=== PATIENT | female | born 2000 | race Caucasian/White ===

== ENCOUNTER 2019-06-10 19:26 | Observation (INO) | payer SELFPAY ==
[2019-06-10 20:28] LABS: #Basophils 0.1 thou/uL (0.0-0.2); #Eosinphils 0.3 thou/uL (0.0-0.7); #Lymphocytes 1.8 thou/uL (1.20-3.40); #Monocytes 0.4 thou/uL (0.11-0.59); #Neutrophils 3.9 thou/uL (1.40-6.50); %Basophils 1.1 % (0.0-1.0); %Eosinophils 4.2 % (0.0-10.0); %Lymphocytes 27.6 % (28.0-48.0); %Monocytes 6.3 % (0.0-4.0); %Neutrophils 60.8 % (31.0-61.0); Hemoglobin 13.8 g/dL (12.0-16.0); Mean Corpuscular HGB CONC 35.1 g/dL (32.0-36.0); Mean Corpuscular Hemoglobin 30.5 pg (25.0-35.0); Mean Corpuscular Volume 86.8 fL (78.0-98.0); Mean Platelet Volume 7.3 fL (7.4-10.4); Platelet Count 343 thou/uL (130-400); RBC Distribution Width 12.1 % (11.5-14.5); Red Blood Cell (RBC) Count 4.53 mill/uL (4.00-5.20); White Blood Cell (WBC) Count 6.4 thou/uL (4.8-10.8)
[2019-06-10 20:38] LABS: BHCG - Serum Negative (NEGATIVE); Pregs Control Background? CLEAR/WHITE (CLR/WHITE); Pregs Control Bar Appear? YES (CONTROL BAR)
[2019-06-10] MEDS ORDERED: Ketorolac Tromethamine 30 MG/ML VIAL ONE (20:50)
[2019-06-10 20:52] LABS: ALT (SGPT) 10 U/L (8-55); AST (SGOT) 13 U/L (5-30); Albumin 4.8 g/dL (3.5-5.0); Alkaline Phosphatase 94 U/L (40-100); Anion Gap 16 mmol/L (10-20); BUN (Urea Nitrogen) 8 mg/dL (8.4-21.0); Bilirubin, Total 0.5 mg/dL (0.2-1.2); Calc. Creatinine Clearance 0 mL/min (70-130); Calcium 9.8 mg/dL (7.8-10.44); Carbon Dioxide 23 mmol/L (22-29); Chloride 105 mmol/L (98-107); Estimated GFR-MDRD Greater than 90; Globulin 2.8 g/dL (2.4-3.5); Glucose 95 mg/dL (70-105); Lipase 16 U/L (8-78); Potassium 3.9 mmol/L (3.5-5.1); Protein, Total 7.6 g/dL (6.0-8.3); Sodium 140 mmol/L (136-145)
[2019-06-10] MEDS ORDERED: Ondansetron PF 4 MG/2 ML Vial ONE ×2 (20:55→22:15)
--- NOTE | 2019-06-10 21:23 | CT ---
CT OF THE ABDOMEN AND PELVIS WITHOUT IV CONTRAST INDICATION: Left lower quadrant abdominal pain and back pain COMPARISON: None FINDINGS: The lack of IV contrast limits evaluation of the solid organs of the abdomen and pelvis. ABDOMEN: Lung bases: Clear Liver: No focal lesion. Gallbladder: Normal appearing. Pancreas: Normal. Adrenal glands: There is a 1.1 cm right adrenal nodule that cannot be further characterized. Left adr enal gland is normal-appearing. Spleen: 12.4 cm. Kidneys and ureters: There is a mild to moderate left hydronephrosis. There is a 5 mm stone at the le ft UPJ. There is a 1.2 cm cyst involving the superior pole of the left kidney. No right-sided hydronephrosis is demonstrated. No additional renal calculus is noted. Vasculature: Normal. Lymph nodes:No lymphadenopathy. Free fluid in abdomen:No free fluid is evident. PELVIS: Small and large bowel: Normal Appendix:Normal Bladder: Normal. Rectal and perirectal soft tissues:Normal. Reproductive structures: Normal. Free fluid in pelvis: No free fluid. Small phleboliths within the lower left hemipelvis. Lymphadenopathy pelvis: No lymphadenopathy is evident. Osseous structures: No acute osseous abnormality. No destructive osteolytic or osteoblastic lesion i s identified. Soft tissues:Normal. IMPRESSION: 1. 5 mm calculus at the left UPJ causing [id number] left hydronephrosis. 2. Left renal cyst. 3. Right adrenal nodule incompletely characterized. Follow-up CT of the abdomen utilizing adrenal mas s protocol may be helpful for improved characterization.
[2019-06-10 21:38] LABS: Bacteria/HPF 4+ HPF (None Seen); Bilirubin Negative (Negative); Blood, Urine Trace (Negative); Clarity Turbid (Clear); Glucose, Urine (Dipstick) Normal (Negative); Leukocyte 500 Leu/uL (Negative); Mucous/LPF 1+ LPF (<2+); Nitrite 2+ (Negative); Protein, Urine (Dipstick) 50 mg/dL (Neg-Trace); Squamous Epithelial 0-3 HPF (0-3); WBC/HPF Greater than 50 HPF (0-3)
[2019-06-10] MEDS ORDERED: cefTRIAXone\\ROCEPHIN 2 GM VIAL ONE (22:15)
[2019-06-10] MEDS ORDERED: Morphine 4 MG/ML VIAL ONE (22:15)
[2019-06-10] MEDS ORDERED: diphenhydrAMINE 50 MG/ML VIAL IVP PRN (23:17)
[2019-06-10 23:20] VITALS: BMI 23.0
[2019-06-10] MEDS: D5 0.9% NS w/ 20 mEq KCl 1,000 ML IV SCH (23:47)
[2019-06-10] MEDS: Ketorolac Tromethamine 30 MG/ML VIAL IVP SCH (23:47)
[2019-06-11] MEDS: Ondansetron PF 4 MG/2 ML Vial IVP PRN ×3 (00:07→08:12)
[2019-06-11] MEDS: Morphine 4 MG/ML VIAL SLOW IVP PRN ×2 (01:29→04:29)
[2019-06-11] MEDS: HYDROcodone/Acetaminophen 5/325 mg Tablet PO PRN ×2 (04:35→21:37)
[2019-06-11] MEDS: Ketorolac Tromethamine 30 MG/ML VIAL IVP SCH ×3 (05:00→18:02)
[2019-06-11 05:19] LABS: #Lymphocytes 0.5 thou/uL (1.20-3.40); #Monocytes 0.1 thou/uL (0.11-0.59); #Neutrophils 7.4 thou/uL (1.40-6.50); %Eosinophils 0.4 % (0.0-10.0); %Lymphocytes 5.7 % (28.0-48.0); %Monocytes 1.7 % (0.0-4.0); %Neutrophils 92.3 % (31.0-61.0); Hemoglobin 11.6 g/dL (12.0-16.0); Mean Corpuscular HGB CONC 34.7 g/dL (32.0-36.0); Mean Corpuscular Hemoglobin 30.1 pg (25.0-35.0); Mean Corpuscular Volume 86.6 fL (78.0-98.0); Mean Platelet Volume 7.2 fL (7.4-10.4); Platelet Count 214 thou/uL (130-400); RBC Distribution Width 12.1 % (11.5-14.5); Red Blood Cell (RBC) Count 3.85 mill/uL (4.00-5.20)
[2019-06-11 05:36] LABS: Anion Gap 11 mmol/L (10-20); BUN (Urea Nitrogen) 8 mg/dL (8.4-21.0); Calc. Creatinine Clearance 91 mL/min (70-130); Calcium 8.4 mg/dL (7.8-10.44); Carbon Dioxide 21 mmol/L (22-29); Chloride 109 mmol/L (98-107); Estimated GFR-MDRD 84; Glucose 121 mg/dL (70-105); Potassium 3.6 mmol/L (3.5-5.1); Sodium 137 mmol/L (136-145)
[2019-06-11] MEDS: cefTRIAXone\\ROCEPHIN 1 GM in Sodium Chloride 0.9% 100 ML IVPB SCH (08:07)
[2019-06-11] MEDS: D5 0.9% NS w/ 20 mEq KCl 1,000 ML IV SCH ×3 (08:07→20:08)
[2019-06-11] MEDS ORDERED: Promethazine HCl 25 MG/ML VIAL IM/IV PRN (08:53)
[2019-06-11] MEDS: Docusate 100 MG CAP PO SCH ×2 (09:29→20:03)
[2019-06-11] MEDS: Tamsulosin HCl 0.4 MG CAP PO SCH (09:29)
--- NOTE | 2019-06-11 09:33 | HP ---
CHIEF COMPLAINT: Left back pain. HISTORY OF PRESENT ILLNESS: This is a 18-year-old female, who presents to the emergency room with 2 days of left flank pain colicky in nature, up to 01/11. In the emergency room, a CT scan was obtained showing a 5-mm proximal obstructing ureteral stone with hydronephrosis. Urinalysis suggested infection showing leukocytes and nitrites , so the patient was given Rocephin and admission was requested. She was seen this morning on rounds and noted to be in significant distress and telling me that her nausea is not controlled by the medications. She tells me she is only having mild pain at this time. She denies fevers, dysuria, or hematuria. No prior history of stones. PAST SURGICAL HISTORY: Includes tonsillectomy and also x1. PAST MEDICAL HISTORY: None. PSYCHIATRIC HISTORY: Depression. SOCIAL HISTORY: Current smoker, using half pack per day. No substance abuse. FAMILY HISTORY: Positive for kidney stones. CURRENT HOME MEDICATIONS: None. ALLERGIES: NO KNOWN ALLERGIES. REVIEW OF SYSTEMS: Twelve-point review of systems was performed, negative except as mentioned in my HPI. PHYSICAL EXAMINATION: VITAL SIGNS: T-max 100.8 overnight. The patient has become tachycardic since 4 o'clock this morning, mild hypotension from 8 o'clock this morning. GENERAL: The patient is in moderate distress, barely able to maintain conversation. CHEST: Unlabored breathing, symmetric chest expansion. HEART: Regular rate and rhythm. ABDOMEN: Soft, nontender, and nondistended. No obvious CVA tenderness. No suprapubic tenderness. SKIN: Warm and dry. Alert and oriented x3. PSYCHIATRIC: Normal mood and affect. EXTREMITIES: Without clubbing, cyanosis, or edema. LABORATORY DATA: White count 9 this morning, up slightly from yesterday. Creatinine 0.87. IMAGING DATA: Reviewed showing obstructing left ureteral stone. ASSESSMENT AND PLAN: Obstructing ureteral stone, hydronephrosis, urinary tract infection versus early pyelonephritis. The patient and I discussed her options this morning and I advised that we proceed with left ureteral stent placement. She expressed understanding of the situation. I reviewed the procedure in detail including the risks and expected postoperative course. She does understand the risks as well as the fact that she will not have the stone treated at this setting and will require surgical intervention for the stone typically around 2 weeks. All of her questions were answered. The operating rooms were notified and we should be able to proceed later this morning for stent placement. Job ID: [id number] MTDD
[2019-06-11] MEDS ORDERED: Morphine 4 MG/ML VIAL ONE (09:50)
[2019-06-11] MEDS ORDERED: Midazolam HCl 2 mg/2 ml Vial ONE (10:29)
[2019-06-11] MEDS ORDERED: Fentanyl 100 MCG/2 ML VIAL ONE (10:29)
[2019-06-11] MEDS ORDERED: Iothalamate Meglumine 60% 50 ML VIAL FS ONE (10:44)
--- NOTE | 2019-06-11 11:25 | RAD ---
XR IVP Retrograde History: Stent placement Comparison: CT examination prior day Findings: Single spot image was obtained. Moderate left hydronephrosis. Impression: Fluoroscopy for procedural purposes.
[2019-06-11] MEDS ORDERED: Lidocaine 1% PF 5 ML VIAL ONE (11:42)
[2019-06-11] MEDS ORDERED: Ondansetron PF 4 MG/2 ML Vial ONE (11:42)
[2019-06-11] MEDS ORDERED: Dexamethasone 20 MG/5 ML VIAL ONE (11:42)
[2019-06-11] MEDS ORDERED: PROPOFOL 200 MG/20 ML VIAL ONE (11:42)
[2019-06-11] MEDS ORDERED: Promethazine HCl 25 MG/ML VIAL IM PRN (11:43)
[2019-06-11] MEDS ORDERED: Ondansetron HCl/PF 4 MG/2 ML Vial IVP PRN (11:43)
[2019-06-11] MEDS ORDERED: Promethazine HCl 25 MG/ML VIAL SLOW IVP PRN (11:43)
[2019-06-11] MEDS ORDERED: PACU-Morphine 4MG/ML VIAL SLOW IVP PRN (11:43)
[2019-06-11] MEDS ORDERED: Promethazine HCl 25 MG/ML VIAL ONE (11:56)
--- NOTE | 2019-06-11 12:26 | OP ---
DATE OF PROCEDURE: 06/11/2019 PREOPERATIVE DIAGNOSIS: Obstructing left ureteral stone. POSTOPERATIVE DIAGNOSIS: Obstructing left ureteral stone. PROCEDURES PERFORMED: Cystoscopy with left retrograde pyelogram, right retrograde pyelogram, left ureteral stent placement with 6 x 24 double-J ureteral stent. ANESTHESIA: General. COMPLICATIONS: None. SPECIMEN: None. BLOOD LOSS: None. DESCRIPTION OF PROCEDURE: After informed consent, the patient was taken to the operating room, transferred to the table on her own power. Anesthesia was established. Time-out was performed, showing the correct patient site and procedure. Preoperative antibiotics had been administered on the floor. She was prepped and draped in the supine position. The rigid cystoscope was carefully inserted through the urethra into the bladder. The bladder was systematically examined, noting no mucosal abnormalities. The left ureteral orifice was cannulated with a Pollack catheter and a gentle retrograde pyelogram performed, showing no dilation or filling defects of the ureter up to the level of the UPJ, where it appears there maybe a filling defect and moderate hydronephrosis beyond. I then used the same [place] catheter and performed a right retrograde pyelogram, showing no filling defects or hydronephrosis on the right side. A wire was then passed into the left ureter and guided into the renal pelvis under fluoroscopic guidance. A 6 x 24 double-J ureteral stent was then positioned over the wire with a curl in the upper pole of the kidney and curl in the bladder. The bladder was then drained. There was no purulent drainage from the ureter. She was then awoken from anesthesia and transferred back to her hospital bed and taken to PACU in stable condition, where she will return to the floor upon recovery. Job ID: [id number]
[2019-06-12] MEDS: Ketorolac Tromethamine 30 MG/ML VIAL IVP SCH ×2 (01:13→04:43)
[2019-06-12] MEDS: D5 0.9% NS w/ 20 mEq KCl 1,000 ML IV SCH (04:43)
[2019-06-12 05:06] LABS: #Lymphocytes 1.3 thou/uL (1.20-3.40); #Monocytes 0.9 thou/uL (0.11-0.59); #Neutrophils 9.7 thou/uL (1.40-6.50); %Eosinophils 0.2 % (0.0-10.0); %Lymphocytes 11.2 % (28.0-48.0); %Monocytes 7.7 % (0.0-4.0); %Neutrophils 80.9 % (31.0-61.0); Hemoglobin 10.4 g/dL (12.0-16.0); Mean Corpuscular HGB CONC 33.1 g/dL (32.0-36.0); Mean Corpuscular Hemoglobin 29.7 pg (25.0-35.0); Mean Corpuscular Volume 89.7 fL (78.0-98.0); Mean Platelet Volume 7.7 fL (7.4-10.4); Platelet Count 192 thou/uL (130-400); RBC Distribution Width 12.5 % (11.5-14.5); Red Blood Cell (RBC) Count 3.49 mill/uL (4.00-5.20); White Blood Cell (WBC) Count 11.9 thou/uL (4.8-10.8)
[2019-06-12 05:27] LABS: Anion Gap 11 mmol/L (10-20); BUN (Urea Nitrogen) 11 mg/dL (8.4-21.0); Calc. Creatinine Clearance 122 mL/min (70-130); Calcium 8.1 mg/dL (7.8-10.44); Carbon Dioxide 21 mmol/L (22-29); Chloride 110 mmol/L (98-107); Estimated GFR-MDRD Greater than 90; Glucose 120 mg/dL (70-105); Potassium 4.1 mmol/L (3.5-5.1); Sodium 138 mmol/L (136-145)
[2019-06-12] MEDS: HYDROcodone/Acetaminophen 5/325 mg Tablet PO PRN (06:12)
[2019-06-12] MEDS: Tamsulosin HCl 0.4 MG CAP PO SCH (09:00)
[2019-06-12] MEDS: Docusate 100 MG CAP PO SCH (09:00)
[2019-06-12] MEDS: cefTRIAXone\\ROCEPHIN 1 GM in Sodium Chloride 0.9% 100 ML IVPB SCH (09:06)
[2019-06-12 12:41] VITALS: BP 107/71; TEMP 98.1
== END 2019-06-12 14:34 | disposition home or self-care (01) ==
LOC: ERS 19:26 → SURG A 22:14
PROVIDERS: ADMIT Urology; ATTEND Urology
PROC: 0T778DZ Dilation of Left Ureter with Intraluminal Device, Via Natural or Artificial Opening Endoscopic (ICD-10-PCS; principal; 2019-06-11)
PROC: BT14YZZ Fluoroscopy of Kidneys, Ureters and Bladder using Other Contrast (ICD-10-PCS; 2019-06-11)
DX: N13.2 Hydronephrosis with renal and ureteral calculous obstruction (principal); F32.9 Major depressive disorder, single episode, unspecified; F17.210 Nicotine dependence, cigarettes, uncomplicated; Z90.89 Acquired absence of other organs; Z98.890 Other specified postprocedural states
CPT/HCPCS: 36415; 74176; 74420; 80048; 80053; 81003; 81015; 83690; 84703; 85025; 96361; 96365; 96375; 96376; C1758; C1769; G0378; J0696; J1100; J1885; J2001; J2250; J2270; J2405; J2550; J2704; J3010; J3480; J3490